=== PATIENT | male | born 1940 | race Caucasian/White ===

== ENCOUNTER 2021-05-21 19:27 | Emergency (ER) | payer OTHER, MEDICARE ==
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
== END 2021-05-21 21:10 | disposition home or self-care (01) ==
LOC: JP.ED 19:27
DX: S30.1XXA Contusion of abdominal wall, initial encounter (principal); S00.81XA Abrasion of other part of head, initial encounter; Z88.2 Allergy status to sulfonamides; Z79.82 Long term (current) use of aspirin; Z79.01 Long term (current) use of anticoagulants; V47.5XXA Car driver injured in collision with fixed or stationary object in traffic accident, initial encounter
CPT/HCPCS: 99284